=== PATIENT | male | born 1945 | race Caucasian/White ===

== ENCOUNTER 2017-09-05 18:23 | Emergency (ER) | payer OTHER ==
[~2017-09-05] VITALS: Ht 165.1 cm; Wt 79.4 kg
[2017-09-05] MEDS ORDERED: XARELTO1 EACH (18:48)
[2017-09-05] MEDS ORDERED: HYZAAR 100-251 EACH (18:48)
[2017-09-05] MEDS ORDERED: LIPITOR80 MG (18:49)
[2017-09-05] MEDS ORDERED: CARDURA8 MG (18:49)
[2017-09-05] MEDS ORDERED: CARDIZEM CD240 MG (18:49)
[2017-09-05] MEDS ORDERED: INDERAL LA80 MG (18:49)
[2017-09-05] MEDS ORDERED: JANUMET 50-1,01 EACH (18:49)
== END 2017-09-06 13:54 | disposition home or self-care (01) ==
LOC: ER 18:23
DX: M79.605 Pain in left leg (principal); I87.2 Venous insufficiency (chronic) (peripheral)

== ENCOUNTER 2018-05-10 12:35 | Emergency (ER) | payer OTHER ==
[~2018-05-10] VITALS: Ht 175.3 cm; Wt 102.1 kg
[~2018-05-10 12:35] MED LIST: CARDIZEM CD240 MG; CARDURA8 MG; HYZAAR 100-251 EACH; INDERAL LA80 MG; JANUMET 50-1,01 EACH; LIPITOR80 MG; XARELTO1 EACH
[2018-05-10] MEDS ORDERED: CEFADROXIL500 MG PO (18:19)
[2018-05-10] MEDS ORDERED: TAMS0.4C PO (18:19)
== END 2018-05-10 18:56 | disposition home or self-care (01) ==
LOC: ER 12:35
DX: M54.5 Low back pain (principal); R10.32 Left lower quadrant pain

== ENCOUNTER 2023-07-10 14:30 | Emergency (ER) | payer OTHER ==
[~2023-07-10] VITALS: Ht 175.3 cm; Wt 95.3 kg
[~2023-07-10 14:30] MED LIST changes: +CEFADROXIL500 MG PO; +TAMS0.4C PO
[2023-07-10] MEDS ORDERED: [UNRECOGNIZED DRUG - OTHER] (15:27)
[2023-07-10] MEDS ORDERED: XIGDUO XR 5 MG1 EAC1 PO (15:28)
[2023-07-10] MEDS ORDERED: cloNIDine HCL 0.2 MG TABLET PO STA (16:37)
[2023-07-10 17:47] LABS: HEMATOCRIT 45.2 % (39.0-48.0); HEMOGLOBIN 15.2 g/dL (13-16.00); MEAN CELL VOLUME 89.6 fL (80.0-100.00); MEAN CORPUSCULAR HEMOGLOBIN 30.2 pg (27.00-32.0); MEAN CORPUSCULAR HGB CONC 33.7 g/dl (32.0-36.0); PLATELET COUNT 156 K/uL (150-450); RED BLOOD COUNT 5.04 M/uL (4.00-6.00); RED CELL DISTRIBUTION WIDTH 14.4 % (11.5-14.5)
[2023-07-10 18:22] LABS: CALCIUM 9.6 mg/dL (8.5-10.1); CREATININE SERUM 1.02 mg/dL (0.70-1.30); GFR 71.2; POTASSIUM 4.17 mEq/L (3.5-5.1)
== END 2023-07-10 18:55 | disposition home or self-care (01) ==
LOC: ER 14:31
PROVIDERS: General Practice
DX: I10 Essential (primary) hypertension (principal); Z88.2 Allergy status to sulfonamides; Z88.0 Allergy status to penicillin; E11.9 Type 2 diabetes mellitus without complications; Z79.84 Long term (current) use of oral hypoglycemic drugs

== ENCOUNTER 2024-01-19 14:42 | Emergency (ER) | payer OTHER ==
[~2024-01-19] VITALS: Ht 175.3 cm; Wt 96.2 kg
[~2024-01-19 14:42] MED LIST changes: +XIGDUO XR 5 MG1 EAC1 PO; +[UNRECOGNIZED DRUG - OTHER]
[2024-01-19] MEDS ORDERED: KETOROLAC TROMETHAMINE 30 MG VIAL IM STA (16:17)
[2024-01-19] MEDS ORDERED: KETOROLAC TROMETHAMINE 30 MG VIAL ONE (16:22)
== END 2024-01-19 16:39 | disposition home or self-care (01) ==
LOC: ER 14:44
DX: M67.919 Unspecified disorder of synovium and tendon, unspecified shoulder (principal); Z88.0 Allergy status to penicillin
CPT/HCPCS: 96372; 99282; J1885

== ENCOUNTER 2025-01-31 16:56 | Emergency (ER) | payer OTHER ==
[~2025-01-31] VITALS: Ht 175.3 cm; Wt 93.0 kg
[2025-01-31] MEDS ORDERED: PAROXETINE HCL10 MG PO (17:09)
[2025-01-31] MEDS ORDERED: GLIPIZIDE5 MG PO (17:09)
[2025-01-31] MEDS ORDERED: TRIJARDY XR 101 EACH PO (17:09)
[2025-01-31] MEDS ORDERED: ORPHENADRINE CITRATE 30 MG/ML AMPUL ONE (18:13)
[2025-01-31] MEDS ORDERED: KETOROLAC TROMETHAMINE 60 MG VIAL IM ONE ×2 (18:13→18:30)
[2025-01-31] MEDS ORDERED: NORFLEX100MG PO (18:17)
[2025-01-31] MEDS ORDERED: DICLOFENAC SODI75 MG PO (18:17)
[2025-01-31] MEDS ORDERED: ORPHENADRINE CITRATE 30 MG/ML AMPUL IM ONE (18:30)
== END 2025-01-31 18:23 | disposition home or self-care (01) ==
LOC: ER 16:56
DX: M54.50 Low back pain, unspecified (principal); R21 Rash and other nonspecific skin eruption; E11.9 Type 2 diabetes mellitus without complications; Z79.84 Long term (current) use of oral hypoglycemic drugs; I10 Essential (primary) hypertension; Z88.0 Allergy status to penicillin
CPT/HCPCS: 96372; 99282; J1885; J2360